=== PATIENT | male | born 1950 | race Caucasian/White ===

== ENCOUNTER 2023-06-07 09:17 | Emergency (ER) | payer OTHER, SELFPAY ==
[2023-06-07 09:19] VITALS: BP 92/57
[2023-06-07 09:53] VITALS: BP 115/74
[2023-06-07] MEDS: LOPRESSOR 5 MG IV (09:55)
[2023-06-07 10:00] VITALS: BP 143/94
[2023-06-07 10:02] VITALS: BMI 19.0
[2023-06-07] MEDS: NSS 500 IV (10:04)
--- NOTE | 2023-06-07 10:04 | ED.GENMED ---
History of Present Illness
General
Chief Complaint: Heart Rate Problem
Source: patient, records and family
Exam Limitations: none
Time Seen by Provider: 06/07/23 09:25
Nursing documentation reviewed up to this point in time: agreed with
Travel History
Have you had any contact with someone who has COVID-19?: No
Do you have any symptoms of coronavirus? Fever > 100 degrees, chills, cough, shortness of breath, sore throat, loss of taste or smell, muscle aches, or headache?: No
History of Present Illness
History of Present Illness:
Patient is a 72-year-old male who presents to the emergency department with repeated episodes of feeling lightheaded and dizzy this morning. Patient states he is able to move his head without any changes. Patient was having lightheaded and dizzy
episodes for approximately 3 to 4 minutes repeatedly this morning. Patient got into his car and had to stop 3 x 2 resolved the issue. Patient denies chest pain. Patient denies diaphoresis. Patient denies chest pain or shortness of breath.
Patient does develop palpitations with his watch that his heart rate was at 198. This is when he is having the episodes. Patient denies any recent injuries or illnesses. Patient does have night sweats for the past 1-1/2 months. Patient is lost
couple of pounds. Patient denies skin or hair changes.
Past History
Past History
ED Past Medical History: Other (Mild mitral valve prolapse)
ED Past Surgical History: None
Patient has exhibited threatening behavior?: No
PSI?: No
Social History
Tobacco: Non-smoker
Alcohol: None
Drug: None
Personal:
Living: with family
Employment: Retired
Review of Systems
Review of Systems
All Other Systems: ROS reviewed and negative except as documented in HPI and ROS
Constitutional: Reports weight loss and night sweats; Denies fever, fatigue or chills
EENT: Reports no symptoms
Cardiac: Reports palpitations and other (Lightheaded); Denies chest pain, diaphoresis or syncope
ABD/GI: Reports no symptoms
: Reports no symptoms
Musculoskeletal: Reports no symptoms
Skin: Reports no symptoms
Neurological: Reports dizzy; Denies headache, weakness or numbness
Hematologic/Lymphatic: Reports no symptoms
Psychiatric: Reports no symptoms
Phy Exam
Physical Exam
Physical Exam:
Physical Exam
General: No apparent distress, alert and appropriate, well nourished, well hydrated
HENT: Normocephalic, supple with no lymphadenopathy, no thyromegaly
Eyes: Clear sclera, conjuctiva without injection. No nystagmus
Heart: Regular rhythm and rate. No S3, S4. No murmur. No NVD, bruit
Lungs: No respiratory distress, no stridor, lung sounds clear and equal bilaterally, chest wall symmetrical and nontender
Abdomen: Soft, nontender, BS good
Neuro: Alert and oriented x 3, CN II - XII intact, no motor focality, no cerebellar dysfunction
Skin: no rash
Psychiatric: well kept. interactive and cooperative
Extremities: No edema, cyanosis, tenderness, Good and equal peripheral pulses.
Course
Orders/Labs/Results
Orders:
Orders
06/07/23
Electrocardiogram (*1) Stat
Reason for Study: Chest Pain
Comment: NO ORDER RECIEVED
06/07/23 09:22
Electrocardiogram (*1) Urgent
Reason for Study: Tachycardia
EKG- Treatment ONCE
06/07/23 09:51
Adenosine [Adenocard] 18 mg .ROUTE .STK-MED ONE
06/07/23 09:53
Metoprolol [Lopressor] 5 mg .ROUTE .STK-MED ONE
06/07/23 09:55
Metoprolol [Lopressor] 5 mg IV NOW STA
06/07/23 10:01
0.9% Sodium Chloride 500 ml [Nss] 500 ml IV BOLUS
06/07/23 10:10
Complete Blood Count/With Diff Urgent
Comprehensive Metabolic Panel Urgent
Lyme Progressive Urgent
TSH Reflex To Free T4 Urgent
Abnormal Lab Results
06/07/23
10:10
RBC 4.59 L 10^6/uL
(4.70-6.10)
Immature Gran % 0.6 H %
(0-0.5)
Glucose 104 H mg/dl
(70-99)
06/07/23 10:10
06/07/23 10:10
Vital Signs
Initial and Last Documented VS:
Initial Vital Signs
Temp Pulse Resp BP Pulse Ox
97.9 F 122 20 92/57 96
06/07/23 09:19 06/07/23 09:19 06/07/23 09:19 06/07/23 09:19 06/07/23 09:19
Last Documented Vital Signs
Temp Pulse Resp BP Pulse Ox
97.9 F 73 16 118/77 97
06/07/23 09:19 06/07/23 12:00 06/07/23 12:00 06/07/23 12:00 06/07/23 12:00
*Radiology
Radiology exam reviewed: other (na)
*Pulse Oximetry
Patient hypoxic: no
*EKG
Interpreted by ED Provider?: Yes
EKG Intrepretation Date: 06/07/23
EKG Intrepretation Time: 10:19
Interpretation: abnormal
Comparison EKG: changes noted
Heart Rate: 99
Rate: normal
Rhythm: sinus
[employer]: normal axis
Interval: normal interval
QRS Pattern: normal QRS
Ischemia: non-specific ST changes
*Floor Finisher Interpretation
Rate: tachycardiac
Interpretation: abnormal
Heart Rate: 190
Rhythm: SVT
*Critical Care Note
Total Time (30-74mins, 75-104mins- exclusive of procedures): Not Applicable
Update Note
Update Note:
1007 while initially examining patient he went into repeated episodes of SVT that would break spontaneously. Patient would be symptomatic with them. Patient continued this pattern. Patient never stated it long enough to get adenosine however did
give the patient 5 mg of IV metoprolol. Patient tolerated well. Reviewed the patient's echo and stress test from previous.
12 00 the patient no longer is in SVT or going into have it. Spoke with cardiology and will arrange follow-up. In addition the patient a started on metoprolol
ED Attending Note
-
Portions of this chart may have been created with voice recognition software.� Occasional wrong word or��sound alike� substitutions may have occurred due to the inherent limitations of voice recognition software.
Discharge Plan
Departure
Patient Disposition: Home (Routine Discharge)
Date of Disposition: 06/07/23
Time of Disposition: 11:57
Patient with high blood pressure during this ER visit?: No
Condition: Good
Covid-19: Not Applicable
Discharge Problem:
Paroxysmal supraventricular tachycardia
Instructions: Supraventricular tachycardia (SVT)
Prescriptions:
New
metoprolol tartrate 25 mg tablet
25 mg PO BID Qty: 30 0RF
Rx Instructions:
You may take every 6 hours if developing rapid heart beat
No Action
diltiazem HCl 120 mg Tablet
120 mg PO BID
Referrals:
Florecita Ward MD [Family Provider] - Follow up in 5-7 days
Aidan Jackson MD [Active] - Call in 1-3 days for appt
Activity Restrictions/Additional Instructions:
Stop the diltiazem
Interventions
Interventions:
*Risk Screen - Suicide Last Done: 06/07/23 10:05
*General Assessment Last Done: 06/07/23 10:06
*Neglect/Abuse Screening Last Done: 06/07/23 10:05
ED- Fall Risk Assessment Last Done: 06/07/23 10:06
*ED COVID-19 Vaccine History Last Done: 06/07/23 10:06
*Nursing Disposition Last Done: 06/07/23 12:30
ED- Cardiac Assessment Last Done: 06/07/23 10:30
ED- Pulmonary Assessment Last Done: 06/07/23 10:30
Discharge Date and Time
Discharge Date/Time: 06/07/23 12:30
Print Language: SOMALI
[2023-06-07 10:28] LABS: % Eosinophils 0.7 % (0-6); % Immature Granulocytes 0.6 % (0-0.5); % Monocytes 8.8 % (1.7-9.3); % Neutrophils 57.9 % (42.2-75.2); Absolute Basophils 0.1 10^3/uL (0-0.2); Absolute Eosinophils 0.1 10^3/uL (0-0.7); Absolute Lymphocytes 2.2 10^3/uL (1.2-3.4); Absolute Monocytes 0.6 10^3/uL (0.1-0.6); Absolute Neutrophils 4.2 10^3/uL (1.4-6.5); Hematocrit 39.8 % (39.0-52.0); Hemoglobin 14.2 g/dL (13.0-18.0); Mean Corp Hgb Conc. 35.7 g/dL (33.0-37.0); Mean Corpuscular Hgb 30.9 pg (27.0-31.0); Mean Corpuscular Volume 86.7 fL (80.0-94.0); Nucleated Red Blood Cells % 0 % (-); Platelet Count 363 10^3/uL (130-400); Red Blood Cell Count 4.59 10^6/uL (4.70-6.10); Red Cell Dist. Width 12.4 % (11.5-14.5); White Blood Cell Count 7.2 10^3/uL (4.8-10.8)
[2023-06-07 10:34] LABS: ALT (SGPT) 19 U/L (0-50); AST (SGOT) 23 U/L (17-59); Albumin 4.4 g/dl (3.5-5.0); Alkaline Phosphatase 96 U/L (38-126); Blood Urea Nitrogen 17 mg/dl (9-20); Calcium 9.9 mg/dl (8.4-10.2); Carbon Dioxide 22 mmol/L (22-30); Chloride 104 mmol/L (98-107); Estimated Creatinine Clearance 66 ml/min; Glucose 104 mg/dl (70-99); Potassium 4.2 mmol/L (3.5-5.1); Sodium 135 mmol/L (135-145); Total Bilirubin 0.6 mg/dl (0.2-1.3); Total Protein 7.3 g/dl (6.3-8.2); eGFR > 60.00
[2023-06-07 11:00] VITALS: BP 120/80
[2023-06-07 11:06] LABS: TSH Reflex To Free T4 1.36 uIU/ml (0.47-4.68)
[2023-06-07 12:00] VITALS: BP 118/77
[2023-06-09 12:58] LABS: Lyme Antibody Screen, EIA Negative (Negative)
== END 2023-06-07 12:30 | disposition home or self-care (01) ==
LOC: EMR 09:17
PROVIDERS: EMERGENCY PHYSICIAN Emergency Medicine; FAMILY PHYSICIAN Internal Medicine; REFERRING PHYSICIAN Internal Medicine Cardiovascular Disease
DX: I47.19 Other supraventricular tachycardia (principal); I34.1 Nonrheumatic mitral (valve) prolapse
CPT/HCPCS: 99283; 96374; 96361; 80053; 84443; 85025; 86618; 93005; J0153

== ENCOUNTER → 2023-07-11 12:28 | Outpatient (REF) | payer OTHER, SELFPAY | LOC: HWRCS 12:28 | PROVIDERS: ATTENDING PHYSICIAN Physician Assistant; FAMILY PHYSICIAN Internal Medicine | DX: I34.1 Nonrheumatic mitral (valve) prolapse (principal); R06.02 Shortness of breath | CPT/HCPCS: 93306 ==

== ENCOUNTER 2023-08-04 07:46 | Day surgery (SDC) | payer OTHER, SELFPAY ==
[2023-07-17 08:07] VITALS: BMI 19.0
[2023-07-17 08:38] LABS: % Basophils 1.3 % (0-2); % Eosinophils 2.4 % (0-6); % Immature Granulocytes 0.3 % (0-0.5); % Lymphocytes 29.5 % (20.5-51.1); % Monocytes 10.7 % (1.7-9.3); % Neutrophils 55.8 % (42.2-75.2); Absolute Basophils 0.1 10^3/uL (0-0.2); Absolute Eosinophils 0.2 10^3/uL (0-0.7); Absolute Lymphocytes 2.3 10^3/uL (1.2-3.4); Absolute Monocytes 0.8 10^3/uL (0.1-0.6); Absolute Neutrophils 4.3 10^3/uL (1.4-6.5); Mean Corp Hgb Conc. 33.3 g/dL (33.0-37.0); Mean Corpuscular Hgb 30.8 pg (27.0-31.0); Mean Corpuscular Volume 92.5 fL (80.0-94.0); Mean Platelet Volume 9.2 fL (7.4-10.4); Nucleated Red Blood Cells % 0 % (-); Platelet Count 317 10^3/uL (130-400); Red Blood Cell Count 4.54 10^6/uL (4.70-6.10); Red Cell Dist. Width 12.6 % (11.5-14.5); White Blood Cell Count 7.7 10^3/uL (4.8-10.8)
[2023-07-17 08:58] LABS: ALT (SGPT) 25 U/L (0-50); AST (SGOT) 25 U/L (17-59); Albumin 4.6 g/dl (3.5-5.0); Alkaline Phosphatase 86 U/L (38-126); Blood Urea Nitrogen 18 mg/dl (9-20); Calcium 9.9 mg/dl (8.4-10.2); Carbon Dioxide 28 mmol/L (22-30); Chloride 107 mmol/L (98-107); Estimated Creatinine Clearance 66 ml/min; Glucose 93 mg/dl (70-99); Magnesium 2.1 mg/dl (1.6-2.3); Potassium 4.4 mmol/L (3.5-5.1); Sodium 143 mmol/L (135-145); Total Bilirubin 0.5 mg/dl (0.2-1.3); Total Protein 7.7 g/dl (6.3-8.2); eGFR > 60.00
--- NOTE | 2023-07-17 13:50 | HPS.HSE ---
Family Physician
-
Family Physician: Florecita Ward
Chief Complaint
-
Atrial tachycardia.
History of Present Illness
The patient is a 72 year old male presenting today for atrial tachycardia. A review of his prior 14 day outpatient monitor found multiple episodes of paroxysmal, self-terminating atrial tachycardia, with the longest episode lasting 4.6
minutes. His average heart rate while in atrial tachycardia is 199 beats per minute. These episodes are also noted to produce symptoms such as lightheadedness and palpitations. He is on current pharmacological therapy with Metoprolol Succinate.
Although this helps significantly with his arrhythmia, he does note fatigue and excessive tiredness likely secondary to this medication. He is interested in pursuing an EP study and SVT ablation for further arrhythmia management. He denies any
current complaints today such as chest pain, shortness of breath, nausea, vomiting, diarrhea, dizziness, cough, sore throat, or fever.
Medical History
Past Medical History
Past Medical History: Reports Other
Additional Past Medical History:
1. Atrial tachycardia, pharmacological therapy with Metoprolol Tartrate.
2. Hyperlipidemia.
3. Mitral valve prolapse.
4. Diverticulosis.
5. Ureteral calculi.
6. Remote vertigo.
7. Prostate cancer, 2017, status post robotic prostatectomy.
8. Right eye pupil dilation since right cataract surgery, 02/2023, with resultant visual blurring.
9. Tinnitus.
10. COVID 19, 01/2022, without residual side effects.
Past Surgical History: Reports Other
Additional Past Surgical History:
1. Robotic prostatectomy.
2. Bilateral cataract extraction.
3. Colonoscopy x2.
Social History
Tobacco: Non-smoker
Alcohol: None
Personal:
Living: Other (He lives in a 2 story home with his . )
Family History
Family History: Not pertinent
Allergies / Home Medications
Allergy/Medication List:
Home medications: Metoprolol Tartrate 25 mg p.o. twice a day.
Allergies: Pollen. No known drug allergies.
Review of Systems
-
A 12 point ROS was completed and negative except as noted: Yes
Physical Exam
Vital Signs
Blood pressure 132/78. Heart rate 63. Respirations 18. Pulse ox 98% on room air.
Height 5 feet, 11 inches. Weight 61.8 kg. BMI 19.0.
Physical Exam
General: Well Developed, Well Nourished and No Apparent Distress
HEENT: NormoCephalic, Moist mucous membranes, Atraumatic and Other (Dilation of right eye pupil noted. )
Respiratory: Clear
Cardiac: Regular Rhythm
GI: Soft, Non Tender and Non Distended
Musculoskeletal: Normal Gait & Station
Skin: Warm and Dry
Neuro: AO x 3 and Nonfocal/grossly intact
Laboratory Results
-
07/17/23 08:19
07/17/23 08:19
Laboratory Results
Total Bilirubin 0.5 mg/dl (0.2-1.3) 07/17/23 08:19
AST 25 U/L (17-59) 07/17/23 08:19
ALT 25 U/L (0-50) 07/17/23 08:19
Alkaline Phosphatase 86 U/L (38-126) 07/17/23 08:19
EKG 07/17/2023: Sinus bradycardia. Minimal voltage criteria for LVH, may be normal variant.
Echocardiogram 07/11/2023: Normal left ventricular size, wall thickness and systolic function. Left ventricular ejection fraction is 55-60% by Zhou's method of discs. Normal right ventricular size and function. Trace mitral regurgitation. No
aortic regurgitation is seen. Tricuspid valve opens normally. Trace tricuspid regurgitation. Estimated pulmonary artery pressure of 15 mmHg, assuming a right atrial pressure of 3 mmHg. Trace pulmonic regurgitation. Normal pericardium and pleura
without evidence of effusion. Sinuses of Valsalva (3.9 cm) dilatation. The IVC is of normal size and demonstrates normal respiratory variation. No significant change compared to 2020 echocardiogram.
Exercise stress test 08/09/2020: Normal treadmill stress test to 8.5 METS.
Impression/Plan
-
IMPRESSION/PLAN:
1. Paroxysmal atrial tachycardia: The patient is in need of an EP study and SVT ablation with Dr. Aidan Jackson on 08/04/2023. The benefits and risks of the procedure have been explained to the patient. The patient understands these risks and
wishes to proceed. He is aware to hold his Metoprolol Succinate 3 days prior to his ablation.
[2023-08-04] VITALS (14 sets, daily range): BP systolic 104–140; BP diastolic 65–85; BMI 18.7
[2023-08-04 12:18] LABS: ACT-LR - POC 223 Seconds (116-155)
[2023-08-04 12:40] LABS: ACT-LR - POC 273 Seconds (116-155)
[2023-08-04 13:01] LABS: ACT-LR - POC 316 Seconds (116-155)
--- NOTE | 2023-08-04 14:09 | ITS.CL.ABL ---
Milking Worker - Ablation
Ablation
Procedure Report:
ELECTROPHYSIOLOGIC STUDY AND POSSIBLE ABLATION
Procedure Date: August 04, 2023
Primary Care Provider: Dr. Florecita Ward
INDICATION: Supraventricular tachycardia, palpitations. Documented short but rapid and disturbing burst of paroxysmal atrial tachycardia resistant to medical therapy.
Presenting rhythm: Sinus rhythm
PROCEDURE:
Ultrasound Guidance performed by md was utilized for femoral venous Vascular Access b/l. Vascular US demonstrated the typical vascular anatomy.
Multipolar recording catheters were positioned at the HRA, RVA, His bundle and CS (for left atrial recording/mapping).
Mapping, recording and pacing were performed from these sites.
Baseline measurements were recorded and analyzed. Antegrade and retrograde AV reji Wenckebach CLs were obtained.
Programmed electrical stimulation was performed. Premature extrastimuli were delivered from the HRA, CS and RVA catheters.
Burst atrial pacing was also performed from HRA and LA (CS) sites.
In the baseline state there were spontaneous premature atrial depolarizations originating from both the right atrium and the left atrium.
With programmed electrical stimulation short burst of paroxysmal left atrial tachycardia could be induced but there were no sustained tachyarrhythmias.
Isoproterenol infusion was begun and escalated until there were spontaneous burst of paroxysmal atrial tachycardia initially self terminating and then sustained. Activation sequence finds this to be a left atrial arrhythmia.
Isoproterenol infusion was discontinued. Baseline state resumed. Transseptal puncture was performed for left atrial access. This entailed advancing an Agilis sheath with dilator into the superior vena cava and withdrawing both (monitoring
intracardiac ultrasound, fluoroscopy and tip pressure) with the tip oriented toward the atrial septum. The fossa ovalis was engaged (indicated by sudden displacement of the sheath tip as well as tenting of the fossa seen on intracardiac
ultrasound). Brockenbrough needle along with safe septl wire was utilized to gain access to the left atrium. Intracardiac echocardiogram confirmed left atrial access and demonstrated no pericardial effusion.
The L'Idealist multipolar grid catheter was then positioned within the left atrium and a three-dimensional electroanatomical map initially in sinus rhythm and then in atrial tachycardia was developed using Evince in voxel mode.
Extensive activation mapping determined to tachycardia origin as mitral annular at approximately 2:00 on the annulus in SYRIAN 30 degrees view.
4 mm tip irrigated contact sensing radiofrequency ablation catheter was then substituted for the multipolar mapping catheter and positioned at the targeted site. During energy delivery the tachycardia quickly terminated. Several more lesions were
delivered in and around this area at the mitral valve annulus. Isoproterenol was resumed. After several minutes waiting short bursts of clinical tachycardia were noted to spontaneously occur. Then sustained tachycardia was observed. RF energy
was once again delivered in and around the targeted area terminating the tachycardia. After several more minutes, atrial tachycardia spontaneously recurred. Several more lesions were given targeting LSI of 5.5-6 at areas with larger A and then
deeper towards the annulus with areas with only small A and large V. No further episodes of atrial tachycardia were either inducible or observed on isoproterenol. Isoproterenol was discontinued and intracardiac echocardiogram demonstrated no
pericardial effusion.
COMPLICATIONS: None
SUMMARY:
EPS with coronary sinus catheter
EPS with drug infusion
Mapping and ablation of SVT
Transseptal puncture
Three-dimensional electroanatomical mapping
Intracardiac echocardiogram
RECOMMENDATIONS:
Maintain current dose of beta-maggie and we can reassess him as an outpatient in 3 months.
Copy to:
Dr Florecita Ward
== END 2023-08-04 17:21 | disposition home or self-care (01) ==
LOC: CATH 07:46
PROVIDERS: ATTENDING PHYSICIAN Internal Medicine Cardiovascular Disease; FAMILY PHYSICIAN Internal Medicine
DX: I47.19 Other supraventricular tachycardia (principal); R42 Dizziness and giddiness; R00.2 Palpitations; R53.83 Other fatigue; E78.5 Hyperlipidemia, unspecified; I34.1 Nonrheumatic mitral (valve) prolapse; Z87.442 Personal history of urinary calculi; Z90.79 Acquired absence of other genital organ(s); Z85.46 Personal history of malignant neoplasm of prostate; Z86.16 Personal history of COVID-19; H57.04 Mydriasis
CPT/HCPCS: 93662; C1732; C1730; C1894; C1766; C2630; C1892; C1759; 36415; 76937; 80053; 83735; 85025; 93005; 93462; 93653